=== PATIENT | female | born 1960 | race Caucasian/White ===

== ENCOUNTER → 2018-10-14 | Outpatient (CLI) | payer MEDICARE ==
[~2018-10-14] MED LIST: LEVO200T PO; MORP30TA83 PO; OXYC1TAB15 PO; PARI2CAP PO; PROM25TA10 PO; SIMV20TA3 PO; TORS20TA2 PO; VENL150C PO
== END | disposition home or self-care (01) ==
LOC: PCVCCLINIC 12:53
PROVIDERS: ATTEND Internal Medicine
DX: Z01.818 Encounter for other preprocedural examination (principal); I12.0 Hypertensive chronic kidney disease with stage 5 chronic kidney disease or end stage renal disease; E11.22 Type 2 diabetes mellitus with diabetic chronic kidney disease; N18.6 End stage renal disease; I48.91 Unspecified atrial fibrillation; I63.9 Cerebral infarction, unspecified; I25.2 Old myocardial infarction; E21.3 Hyperparathyroidism, unspecified; R09.89 Other specified symptoms and signs involving the circulatory and respiratory systems; E78.00 Pure hypercholesterolemia, unspecified; M10.9 Gout, unspecified; Z99.2 Dependence on renal dialysis; Z87.891 Personal history of nicotine dependence; Z88.5 Allergy status to narcotic agent
CPT/HCPCS: 36415; 80061; 93005; G0463

== ENCOUNTER → 2018-11-18 | Outpatient (CLI) | payer MEDICARE ==
[~2018-11-18] MED LIST changes: +REGADENOSON 0.4 MG/5 ML DISP.SYRIN. IV ONE
--- NOTE | 2018-11-18 10:16 | PCVCIMAG ---
APPROVED REPORT Study performed: 11/18/2018 08:39:39 EXAM: Comprehensive 2D, Doppler, and color-flow Echocardiogram Patient Location: Echo lab Status: routine BSA: 1.80 HR: 72 bpm Rhythm: NSR Other Information Study Quality: Adequate Indications Pre-Op Atrial Fibrillation Dyspnea Chest Pain 2D Dimensions IVSd: 11.36 (7-11mm) LVDd: 45.54 mm PWd: 9.74 (7-11mm)Ascending Ao: 39.77 (22-36mm) LVDs: 34.79 (25-40mm) Left Atrium: 46.45 (27-40mm) Aortic Root: 37.18 mm LV Single Plane 4CH: 59.78 % LV Single Plane 2CH: 54.63 % Biplane EF: 57.9 % Volumes Left Atrial Volume (Systole) Single Plane 4CH: 93.76 mLSingle Plane 2CH: 134.10 mL LA ESV Index: 63.00 mL/m2 Aortic Valve AoV Peak Isaac.: 1.88 m/s AO Peak Gr.: 14.21 mmHgLVOT Max P.64 mmHg LVOT Max V: 1.29 m/s Mitral Valve MV Peak Gr.: 7.92 mmHg MV Mean Gr.: 3.21 mmHgE/A Ratio: 1.1 MV Decel. Time: 351.87 ms MV E Max Isaac.: 1.35 m/s MV A Isaac.: 1.21 m/s MV Max Isaac.: 1.41 m/s MV Mean Isaac.: 0.83 m/s MV VTI: 412.14 mm MV PHT: 98.19 ms MVA (PHT): 2.24 cm2 IVRT: 83.04 ms Pulmonary Valve PV Peak Isaac.: 1.21 m/sPV Peak Gr.: 5.90 mmHg Pulmonary Vein P Vein S: 0.38 m/sP Vein A: 0.32 m/s P Vein D: 0.64 m/sP Vein A Dur.: 124.6 msec P Vein S/D Ratio: 0.59 Tricuspid Valve TR Peak Isaac.: 2.67 m/s TR Peak Gr.: 28.49 mmHg TV Vmax: 0.66 m/s Left Ventricle The left ventricle is normal size. There is normal LV segmental wall motion. There is normal left ventricular wall thickness. Left ventricular systolic function is normal. The left ventricular ejection fraction is within the normal range. LVEF is 55-60%. Grade II - pseudonormal filling dynamics. Right Ventricle The right ventricle is normal size. The right ventricular systolic function is normal. Atria Left atrium is severely dilated. Right atrium is mildly dilated. Aortic Valve Mild aortic mildly calcified, trileaflet. No aortic regurgitation is present. There is no aortic valvular stenosis. Mitral Valve Moderate mitral annular calcification. There is no mitral valve regurgitation noted. No evidence of mitral valve stenosis. Tricuspid Valve The tricuspid valve is normal in structure. Mild tricuspid regurgitation with PAP of 35 mmHg. Pulmonic Valve The pulmonary valve is normal in structure. Mild pulmonic regurgitation. Great Vessels The aortic root is normal in size. Ascending aorta is dilated to 4.0 cm. IVC is normal in size and collapses >50% with inspiration. Pericardium There is no pericardial effusion. There is no pleural effusion. <Conclusion> Left ventricular systolic function is normal. There is normal LV segmental wall motion. LVEF is 55-60%. Moderate diastolic dysfunction Left atrium is severely dilated. Mild aortic mildly calcified, trileaflet. No aortic regurgitation or stenosis Moderate mitral annular calcification. No mitral valve regurgitation. Mild tricuspid regurgitation with pulmonary artery pressure of 35 mmHg. Ascending aorta is dilated to 4.0 cm. There is no pericardial effusion.
--- NOTE | 2018-11-18 10:21 | PCVCIMAG ---
APPROVED REPORT Indications Bruit Doppler Spectral Velocity Analysis PSV / EDVPSV / EDV ECA (R) 107 / 14 cm/sECA (L) 84 / 10 cm/s dICA (R) 73 / 36 cm/sdICA (L) 102 / 44 cm/s Ramona (R) 97 / 40 cm/smICA (L) 54 / 24 cm/s pICA (R) 71 / 22 cm/spICA (L) 87 / 19 cm/s Bulb (R) 77 / 29 cm/sBulb (L) 104 / 27 cm/s dCCA (R) 83 / 27 cm/sdCCA (L) 101 / 27 cm/s mCCA (R) 107 / 23 cm/smCCA (L) 121 / 25 cm/s Vert (R) 58 / 13 cm/sVert (L) 78 / 26 cm/s ICA/CCA 1.17ICA/CCA 1.01 Real Time B-Mode Imaging Vert. (R)AntegradeVert. (L)Antegrade Findings The right carotid bulb has mild calcified plaque. The right proximal internal carotid artery shows <40% stenosis. The right common carotid artery shows no significant stenosis. The right external carotid artery shows no significant stenosis. The left carotid bulb has mild calcified plaque. The left proximal internal carotid artery shows <40% stenosis. The left common carotid artery shows no significant stenosis. The left external carotid artery shows no significant stenosis. Conclusion 1. Right internal carotid artery stenosis (<40%) 2. Left internal carotid artery stenosis (<40%) 3. Antegrade vertebral flow
--- NOTE | 2018-11-21 11:11 | PCVCIMAG ---
APPROVED REPORT Imaging Protocol: Rest Tc-99m/Stress Tc-99m 1 day Study performed: 11/18/2018 10:35:19 Indication: CAD , Dyspnea, Chest pain, Paroxysmal Atrial Fibrillation Patient Location: Out-Patient Stress Nurse: Germania Brothers RN, Tracy Majano RN DC Tech:ERNA PerezMT Ht: 5 ft 3 in Wt: 169 lbs BSA: 1.80 m2 HR: 72 bpm BP: 115/62 mmHg BMI: 29.9 Rhythm: Sinus Rhythm Medical History Medical History: HTN, Hyperlipidemia, CVD, CAD, [place], Current Smoker Medications: Albuterol, Oxycodone, Protonix, Zocor, Desyrel, Effexor, Midodrine Allergies: Codeine, Lyrica, Metformin Cardiac Risk Factors: Age Pretest Chest Pain Characteristics: No chest pain Exercise History: Sedentary Physical Disabilities: Back Resting Data Rest SPECT myocardial perfusion imaging was performed in supine position 45 minutes following the intravenous injection of 10.7 mCi of Tc-99m Sestamibi. Time of rest injection: 0950 Date: 11/18/2018 Administration Route: IV Administration Site: Left AC Pharmacologic Stress Pharmacologic stress test was performed by injecting Regadenoson 0.4 mg IV push over 10-15 seconds immediately followed by the intravenous injection of 35 mCi of Tc-99m Sestamibi. Time of stress injection: 1130 Date: 11/18/2018 Administration Route: IV Administration Site: Left AC Gated Stress SPECT was performed 45 minutes after stress injection. The images were gated to evaluate regional wall motion and calculate left ventricular ejection fraction. Stress Test Details Stress Test: Pharmacologic stress testing performed using 0.4 mg of regadenoson per 5 mL given IV over 10 seconds. Reason for pharmacologic stress test: uses a walker. HRMax Heart Rate (APMHR): 162 bpm Resting HR: 72 bpmTarget HR (85% APMHR): 137 bpm Max HR Achieved: 83 bpm % of APMHR: 51 Recovery HR: 75 bpm BP Resting BP: 115/62 mmHg Max BP: 98/53 mmHg Recovery BP: 97/87 mmHg ECG Resting ECG: Sinus Rhythm Stress ECG: Sinus Rhythm ST Change: None Maximum ST Deviation: 0 mm Arrhythmia: APC's Recovery ECG: Sinus Rhythm Recovery ST Change: None Recovery ST Deviation: 0 mm Recovery Arrhythmia: None Clinical Reason for Termination: Completed protocol Stress Symptoms: Dyspnea, Nausea Exercise duration: 0 min 55 sec Symptoms resolved with caffeine. Stress ECG Conclusion ECG: Non-ischemic Clinical: Non-ischemic Study Quality Study: Good Study Data Post stress, the left ventricular ejection was 61%.. SSS: 0 SRS: 0 SDS: 0 TID = 1.01. Perfusion No evidence of stress induced ischemia or prior myocardial infarction. Wall Motion Normal left ventricular size and function with no regional wall motion abnormalities. Nuclear Conclusion No evidence of stress induced ischemia or prior myocardial infarction. Normal left ventricular size and function with no regional wall motion abnormalities. Post stress, the left ventricular ejection was 61%. No prior study available for comparison. Interpreted by: Guanakito Camarillo MD Electronically Approved: 11/18/2018 20:38:23 <Conclusion> ECG: Non-ischemic Clinical: Non-ischemic
== END | disposition home or self-care (01) ==
LOC: PCVCIMAG 08:32
PROVIDERS: ATTEND Internal Medicine
DX: Z01.818 Encounter for other preprocedural examination (principal); I65.23 Occlusion and stenosis of bilateral carotid arteries; R09.89 Other specified symptoms and signs involving the circulatory and respiratory systems; I63.9 Cerebral infarction, unspecified; E08.00 Diabetes mellitus due to underlying condition with hyperosmolarity without nonketotic hyperglycemic-hyperosmolar coma (NKHHC)
CPT/HCPCS: 78452; 93017; 93306; 93880; A9500; J2785